=== PATIENT | male | born 1945 | race Caucasian/White ===

== ENCOUNTER 2019-03-19 15:23 | Emergency (ER) | payer SELFPAY ==
[~2019-03-19] VITALS: Ht 180.3 cm; Wt 83.0 kg
[~2019-03-19 15:23] MED LIST: HCTZ; INSU100C5 SQ-INSULIN; INSU100V8 SQ; LISI2.5T PO
[2019-03-19 15:37] VITALS: BP 154/77
--- NOTE | 2019-03-19 15:55 | NUR ---
THIS IS A 73 YO M WITH C/O VISION LOSS IN HIS RIGHT EYE SINCE 03/17/19. HE STATES THAT THE EYE HAS BEEN IRRITATED FOR THE PAST MONTH. HIS EYE IS RED AND TEARING. HE STATES THAT HE HAS A CATARACT IN HIS LEFT EYE. FSBS [id number] PERFORMED IN TRIAGE. RESPIRATIONS ARE EVEN AND UNLABORED. PATIENT IS IN NO ACUTE DISTRESS. RESTING IN CHAIR WITH CALL LIGHT IN REACH.
[2019-03-19] MEDS ORDERED: FLUORESCEIN OPHTHALMIC 1 MG STRIP ONE (16:48)
[2019-03-19] MEDS ORDERED: PROPARACAINE OPHTH 0.5%, 15ML ONE (16:48)
[2019-03-19] MEDS ORDERED: PROPARACAINE OPHTH 0.5%, 15ML EACHEYE ONE (17:00)
[2019-03-19] MEDS ORDERED: FLUORESCEIN/BENOXINATE 5 ML DROPS OP ONE (17:00)
[2019-03-19] MEDS ORDERED: NEO/POLYMYX B/DEXA OPHTH OINT, 3.5GM RIGHTEYE SCH (18:00)
--- NOTE | 2019-03-19 18:06 | NUR ---
CALLED PHARMACY TO REQUEST EYE ABX OINTMENT.
== END 2019-03-19 18:29 | disposition home or self-care (01) ==
LOC: ED 16:05
DX: H54.7 Unspecified visual loss (principal); I10 Essential (primary) hypertension; E11.9 Type 2 diabetes mellitus without complications
CPT/HCPCS: 82962; 99283